=== PATIENT | female | born 1965 | race Caucasian/White ===

== ENCOUNTER 2017-07-12 20:28 | Emergency (ER) | payer BC, OTHER ==
[~2017-07-12] VITALS: Ht 177.8 cm; Wt 81.5 kg
[~2017-07-12 20:28] MED LIST: AMOX875 PO; LORT7.5T3 PO; NAPR500 PO; Z.0.NO CURRENT MEDS
[2017-07-12 20:36] VITALS: BP 137/67; PULSE 72; RESP 20; TEMP 98.5; O2SAT 97
--- NOTE | 2017-07-12 20:57 | PD ---
HPI Chief Complaint: Musculoskeletal Complaint Time Seen by Provider: 20:46 Travel History International Travel<30 days: No Contact w/Intl Traveler<30days: Yes Name of Country Traveled to: [place] Traveled to known affect area: No History of Present Illness HPI This 51-year-old female presents with complaint of discoloration of the left wrist. She has noticed it for about 24 hours. She is concerned that she might have a deep vein thrombosis. She is not aware of any trauma. She did have massage. She has a history of deep pain thrombosis several years ago. She was on Coumadin for a couple of years but is not on Coumadin now. She had quite a severe clot at that time. She also had history of melanoma around that time. The wrist is not painful PFSH Past Medical History Hx Anticoagulant Therapy: Yes (asa) Cancer: Yes (BASAL CELL/MELANOMA) Respiratory: Yes (hx PE) ?: Not LMP: last week Menopausal: Yes Past Surgical History Other Surgery: Yes (BASAL CELL AND MELANOMA REMOVED) Social History Alcohol Use: Yes (occ) Tobacco Use: No Substance Use: No Allergies-Medications (Allergen,Severity, Reaction): Coded Allergies: No Known Allergies (Verified , 07/09/11) Reported Meds & Prescriptions Reported Meds & Active Scripts Active Naprosyn (Naproxen) 500 Mg Tab 500 Mg PO BIDPRN Lortab 7.5/500 (Acetaminophen/Hydrocodone Bitart) Tab 1 Tab PO Q4HPRN FOR PAIN Amoxil (Amoxicillin) 875 Mg Tab 875 Mg PO BID Reported No Current Meds (Miscellaneous Medication) Misc Review of Systems General / Constitutional: No: Fever, Chills Eyes: No: Diploplia, Blurred Vision HENT: No: Headaches Cardiovascular: No: Chest Pain or Discomfort Respiratory: No: Cough, Shortness of Breath Gastrointestinal: No: Nausea Genitourinary: No: Urgency Musculoskeletal: No: Myalgias Skin: No Rash Endocrine: No: Heat Intolerance Hematologic/Lymphatic: Positive: Easy Bruising Physical Exam Narrative GENERAL: Well-developed female SKIN: Focused skin assessment warm/dry. HEAD: Atraumatic. Normocephalic. EYES: Pupils equal and round. No scleral icterus. No injection or drainage. ENT: No nasal bleeding or discharge. Mucous membranes pink and moist. NECK: Trachea midline. No JVD. MUSCULOSKELETAL: No obvious deformities. No clubbing. No cyanosis. No edema. .Site of concern is the right wrist. There is an area of ecchymosis which overlies inside the radial artery. There is some mild swelling. There is no tenderness of the muscles of the forearm or the arm. There is a good radial pulse. There is good sensation of the fingers. Data Data Last Documented VS Vital Signs Date Time Temp Pulse Resp B/P Pulse Ox O2 Delivery O2 Flow Rate FiO2 07/12/17 20:36 98.5 72 20 137/67 97 MDM Medical Decision Making Medical Screen Exam Complete: Yes Emergency Medical Condition: Yes Medical Record Reviewed: Yes Differential Diagnosis Differential includes contusion of wrist Narrative Course There is only minimal tenderness at this site and I don't think there is a bony injury. There is good circulation. There is some ecchymosis and I believe this is a bruise. The patient had presented because she is very concerned that she might have a deep vein thrombosis and needing anticoagulation treatment. The area affected her is the most distal portion of the forearm and is not a site that would warrant anticoagulation. I have reassured the patient and she will be released Diagnosis Primary Impression: Contusion of wrist Qualified Code: S60.212A - Contusion of left wrist, initial encounter Disposition: 01 DISCHARGE HOME Condition: Stable Allen Simmons MD Jul 12, 2017 20:57
[2017-07-12] MEDS ORDERED: CELE20TA PO (20:58)
[2017-07-12] MEDS ORDERED: ASPI81TA81 (20:58)
== END 2017-07-12 21:14 | disposition home or self-care (01) ==
LOC: PHED 20:28
DX: S60.212A Contusion of left wrist, initial encounter (principal); Z79.82 Long term (current) use of aspirin; Z85.828 Personal history of other malignant neoplasm of skin; Z86.711 Personal history of pulmonary embolism; X58.XXXA Exposure to other specified factors, initial encounter
CPT/HCPCS: 99281